=== PATIENT | female | born 1970 | race Caucasian/White ===

== ENCOUNTER 2021-03-20 13:12 | Emergency (ER) | payer MEDICARE, OTHER ==
[2021-03-20 14:53] LABS: BASOPHIL 0.5 % (0-2); BILIRUBIN NEGATIVE (NEGATIVE); BLOOD NEGATIVE Ery/uL (NEGATIVE); CLARITY CLEAR (CLEAR); COLOR YELLOW (YELLOW); EOSINOPHIL 2.5 % (0-5); GLUCOSE (U) NORMAL (NORMAL); HCT 38.2 % (37.0-47.0); HGB 12.1 g/dl (12.5-16.0); LEUKOCYTES NEGATIVE Leu/uL (NEGATIVE); LYMPHOCYTE 36.3 % (15-48); MCH 27.6 pg (25.0-31.0); MCHC 31.7 g/dL (32.0-36.0); MONOCYTE 8.2 % (0-12); MPV 10.8 fL (6.0-9.5); NEUTROPHIL 52.2 % (41-80); NITRITE NEGATIVE (NEGATIVE); NRBC 0; PLT 256 K/uL (150-400); PROTEIN TRACE (LOW) mg/dL (NEGATIVE); RBC 4.39 M/uL (4.20-5.40); RDW 14.3 % (11.5-14.0); SPECIFIC GRAVITY 1.025 (1.001-1.030); UROBILINOGEN 0.2 mg/dL (0.2-1.0); WBC 9.3 K/uL (4.0-10.5)
[2021-03-20 15:00] LABS: BACTERIA 1+
[2021-03-20 15:07] LABS: ALBUMIN 3.3 g/dL (3.4-5.0); BILIRUBIN - TOTAL 0.1 mg/dL (0.2-1.0); CREATININE 0.8 mg/dL (0.51-0.95); TOTAL PROTEIN 7.3 g/dL (6.4-8.2)
[2021-03-20] MEDS ORDERED: PRILOSEC20 MG PO (17:27)
== END 2021-03-20 18:01 | disposition home or self-care (01) ==
LOC: FER 13:12
PROVIDERS: Nurse Practitioner Family
DX: K21.9 Gastro-esophageal reflux disease without esophagitis (principal); I10 Essential (primary) hypertension; E11.9 Type 2 diabetes mellitus without complications
CPT/HCPCS: 36415; 71045; 71275; 80053; 81001; 83690; 84484; 85025; 85379; 93005; Q9967